=== PATIENT | male | born 1950 | race Hispanic/Latino ===

== ENCOUNTER 2016-12-22 08:15 | Emergency (ER) | payer MEDICARE ==
[2016-12-22] MEDS ORDERED: GASTROGRAFIN 30 ML BOT ONE (09:00)
--- NOTE | 2016-12-22 21:02 | RAD ---
ABDOMEN ONE VIEW: 12/22/16 Following replacement of a PEG tube, it was injected with gastrografin to check placement. Gastrogra fin is seen partially in the stomach, mostly in the duodenum, and some small amounts in proximal sma ll bowel. Thus, the tube appears to be appropriately placed. There was no gross extravasation seen. IMPRESSION: Gastrografin in appropriate portions of the GI tract. POS: HOME
== END 2016-12-22 10:07 ==
LOC: BURERS 08:15
DX: Z43.1 Encounter for attention to gastrostomy (principal); J44.9 Chronic obstructive pulmonary disease, unspecified; I10 Essential (primary) hypertension; D64.9 Anemia, unspecified; F41.9 Anxiety disorder, unspecified; F32.9 Major depressive disorder, single episode, unspecified; Z87.891 Personal history of nicotine dependence
CPT/HCPCS: 43760; 74000; A4216

== ENCOUNTER 2017-11-11 18:36 | Emergency (ER) | payer MEDICARE, MEDICAID | END 2017-11-11 19:55 | disposition home or self-care (01) | LOC: BURERS 18:36 | DX: Z04.3 Encounter for examination and observation following other accident (principal); I10 Essential (primary) hypertension; J44.9 Chronic obstructive pulmonary disease, unspecified; D64.9 Anemia, unspecified; E11.9 Type 2 diabetes mellitus without complications; K21.9 Gastro-esophageal reflux disease without esophagitis; F03.90 Unspecified dementia, unspecified severity, without behavioral disturbance, psychotic disturbance, mood disturbance, and anxiety; F41.9 Anxiety disorder, unspecified; F32.9 Major depressive disorder, single episode, unspecified; Z87.442 Personal history of urinary calculi; Z86.73 Personal history of transient ischemic attack (TIA), and cerebral infarction without residual deficits; Z87.891 Personal history of nicotine dependence; W06.XXXA Fall from bed, initial encounter; Y92.129 Unspecified place in nursing home as the place of occurrence of the external cause | CPT/HCPCS: 99284 ==

== ENCOUNTER 2019-01-17 07:19 | Emergency (ER) | payer MEDICARE, MEDICAID ==
[2019-01-17 08:17] LABS: Bilirubin Negative (Negative); Blood, Urine Negative (Negative); Clarity Clear (Clear); Glucose, Urine (Dipstick) Negative (Negative); Leukocyte Negative (Negative); Nitrite Negative (Negative); Protein, Urine (Dipstick) 30 mg/dL (Neg-Trace)
[2019-01-17 08:23] LABS: #Basophils 0.1 thou/uL (0.0-0.2); #Lymphocytes 0.4 thou/uL (1.20-3.40); #Monocytes 0.4 thou/uL (0.11-0.59); #Neutrophils 14.3 thou/uL (1.40-6.50); %Basophils 0.4 % (0.0-1.0); %Lymphocytes 2.7 % (21.0-51.0); %Monocytes 2.7 % (0.0-10.0); %Neutrophils 94.1 % (42.0-75.0); Hemoglobin 15.5 g/dL (14.0-18.0); Large Platelets SLIGHT; MDiff Complete? YES; Mean Corpuscular HGB CONC 31.9 g/dL (32.0-36.0); Mean Corpuscular Hemoglobin 29.9 pg (27.0-31.0); Mean Corpuscular Volume 93.7 fL (78.0-98.0); Mean Platelet Volume 13.5 fL (7.4-10.4); Platelet Count 171 thou/uL (130-400); Platelet Morphology Comment Appears Adequate; RBC Distribution Width 12.1 % (11.5-14.5); RBC Morphology Normal; Red Blood Cell (RBC) Count 5.18 mill/uL (4.70-6.10); White Blood Cell (WBC) Count 15.2 thou/uL (4.8-10.8)
[2019-01-17 08:27] LABS: ALT (SGPT) 31 U/L (8-55); AST (SGOT) 22 U/L (5-34); Albumin 4.1 g/dL (3.4-4.8); Alkaline Phosphatase 111 U/L (40-150); Anion Gap 17 mmol/L (10-20); BUN (Urea Nitrogen) 22 mg/dL (8.4-25.7); Bilirubin, Total 0.9 mg/dL (0.2-1.2); Calc. Creatinine Clearance 0 mL/min (70-130); Calcium 10.4 mg/dL (7.8-10.44); Carbon Dioxide 31 mmol/L (23-31); Chloride 99 mmol/L (98-107); Estimated GFR-MDRD 79; Globulin 3.6 g/dL (2.4-3.5); Glucose 151 mg/dL (80-115); Lipase 8 U/L (8-78); Potassium 4.5 mmol/L (3.5-5.1); Protein, Total 7.7 g/dL (5.8-8.1); Sodium 142 mmol/L (136-145)
[2019-01-17 08:30] LABS: Bacteria/HPF Rare-Few HPF (None Seen); Squamous Epithelial 0-3 HPF (0-3); Yeast-Budding 1+ HPF (None Seen)
[2019-01-17 08:31] LABS: WBC/HPF 0-3 HPF (0-3)
[2019-01-17] MEDS ORDERED: Piperacillin/Tazobactam 4.5 GM VIAL ONE (08:45)
[2019-01-17] MEDS ORDERED: Sodium Chloride 0.9% 100 ML ONE (08:48)
[2019-01-17] MEDS ORDERED: Acetaminophen 650 MG Suppository ONE (08:50)
--- NOTE | 2019-01-17 08:56 | RAD ---
CHEST 1 VIEW: COMPARISON: 09/12/2017. HISTORY: Fever. FINDINGS: Normal cardiac silhouette. The pulmonary vessels and hilum are normal. Costophrenic angles are carine r. No masses or consolidation. No pneumothorax or osseous abnormalities. IMPRESSION: No acute cardiopulmonary process. POS: [facility]
--- NOTE | 2019-01-17 09:09 | RAD ---
ONE VIEW ABDOMEN: HISTORY: Visualize tube fluoroscopically. FINDINGS: There appears to be a percutaneous gastric feeding tube projecting over the gastric silhouette. Conf irmation with injection of contrast is recommended. IMPRESSION: Feeding tube projecting over the gastric silhouette. Confirmation of feeding tube location with admi nistration of Gastrografin is recommended. POS: [facility]
--- NOTE | 2019-01-17 10:31 | RAD ---
1 VIEW ABDOMEN: Date: 01/17/19 HISTORY: Evaluate gastric feeding tube placement. Tube check. FINDINGS/IMPRESSION: 2 views of the abdomen are submitted for interpretation. Contrast opacifies the stomach. Appropriate feeding tube location. Results of study discussed with Dr. Branden Epps on 01/17/19 at 1009 hours. CODE CR.
== END 2019-01-17 10:54 | disposition short-term general hospital (02) ==
LOC: BURERS 07:19
DX: A41.9 Sepsis, unspecified organism (principal); I10 Essential (primary) hypertension; J44.9 Chronic obstructive pulmonary disease, unspecified; D64.9 Anemia, unspecified; E11.9 Type 2 diabetes mellitus without complications; K21.9 Gastro-esophageal reflux disease without esophagitis; F41.9 Anxiety disorder, unspecified; F32.9 Major depressive disorder, single episode, unspecified; Z79.899 Other long term (current) drug therapy; Z79.84 Long term (current) use of oral hypoglycemic drugs
CPT/HCPCS: 36415; 51701; 71045; 74018; 80053; 81003; 81015; 83605; 83690; 85025; 87040; 87086; 87149; 87804; 96361; 96365; 96367; J1956; J2543; J3370; J3490

== ENCOUNTER 2020-08-29 23:51 | Emergency (ER) | payer MEDICARE, MEDICAID | END 2020-08-30 00:08 | LOC: BURERS 23:51 | DX: K94.23 Gastrostomy malfunction (principal); E11.9 Type 2 diabetes mellitus without complications; K21.9 Gastro-esophageal reflux disease without esophagitis; I10 Essential (primary) hypertension; Z87.891 Personal history of nicotine dependence | CPT/HCPCS: 99284 ==